=== PATIENT | female | born 1985 | race Caucasian/White ===

== ENCOUNTER 2016-06-07 17:02 | Emergency (ER) | payer OTHER ==
[~2016-06-07] VITALS: Ht 157.5 cm; Wt 87.5 kg
[2016-06-07 17:05] VITALS: TEMP 36.3; Ht 157.5 cm; Wt 87.5 kg
[2016-06-07] MEDS ORDERED: SODIUM CHLORIDE 0.9% 1000ML 1,000 ML IV STA (17:15)
[2016-06-07] MEDS ORDERED: KETOROLAC TROMETHAMINE 30 MG/ML VIAL IV STA (17:19)
[2016-06-07] MEDS ORDERED: DiphenhydrAMINE HCL 50 MG/ML VIAL IV STA (17:19)
[2016-06-07] MEDS ORDERED: PROCHLORPERAZINE 5 MG/ML 2 ML VIAL IV STA (17:19)
[2016-06-07 18:57] VITALS: BP 117/72; PULSE 88; O2SAT 99
--- NOTE | 2016-06-07 20:29 | EMERGENCY ROOM VISIT NOTE ---
History Report prepared by Santyiblucina: Shavon Rogers Under the Supervision of: Dr. Jesus Hines M.D. First contact with patient: 17:10 Chief Complaint: HEADACHE Stated Complaint: VOMTING, MCCANN, RT SIDE PAIN History of Present Illness The patient is a 30 year old female who presents to the Emergency Room with complaints of a persistent migraine headache that began last night. She describes her headache as throbbing. The pain started in her right shoulder and has since migrated to the front of her head. Light makes her pain worse. She also complains of nausea and vomiting. She has developed some abdominal discomfort since she started to vomit. The patient has had migraines in the past and her current symptoms feel similar to previous migraines. She is not on medications for her migraines because they are typically not too bad. She is unsure if there is a chance of , as she is trying to get . Her last menstrual period was May 15. Denies fevers, head trauma, unilateral numbness or weakness, or other complaints. Source of History: patient Onset: yesterday Position: head Quality: other (throbbing, migraine) Timing: other (persistent) Modifying Factors (Worsening): other (light) Associated Symptoms: + nausea, + vomiting, No fevers, No numbness, No weakness Note: Other symptoms: abdominal discomfort Review of Systems See HPI for pertinent positives & negatives. A total of 10 systems reviewed and were otherwise negative. Past Medical & Surgical Medical Problems: (1) Migraine headache Family History No pertinent family history stated. Social History Smoking Status: Current Some Day Smoker Current/Historical Medications No Active Prescriptions or Reported Meds Allergies Coded Allergies: No Known Allergies (Unverified , 06/07/16) Physical Exam Vital Signs Date Time Temp Pulse Resp B/P Pulse Ox O2 Delivery O2 Flow Rate FiO2 06/07/16 18:57 88 18 117/72 99 06/07/16 17:05 36.3 80 18 148/83 99 Room Air Physical Exam Constitutional: Vital signs reviewed. Eyes: Pupils are equal round reactive to light. Conjunctiva are noninjected. ENT: Pharynx is clear without erythema or exudate. Mucous membranes are moist. Neck supple without meningeal signs. Respiratory: Clear to auscultation bilaterally. Breath sounds are equal bilaterally. Cardiovascular: Regular rate and rhythm. No rubs or gallops. GI: Soft, nondistended and nontender. Bowel sounds are present. Musculoskeletal: No peripheral edema. Integumentary: No cyanosis. Neurological: The patient is awake and alert. Cranial nerves II-XII are intact. Motor is 5 out of 5 all extremities. Sensation is intact to light touch all extremities. Normal speech. No pronator drift. Psychiatric: Normal affect. Medical Decision & Procedures Laboratory Results Test 06/07/16 17:15 Laboratory results as reviewed by me. Medications Administered Medications (Trade) Dose Ordered Sig/Sara Route Start Time Stop Time Status Last Admin Dose Admin Sodium Chloride (Nss 1000ml) 1,000 ml @ 999 mls/hr Q1H1M STAT IV 06/07/16 17:15 06/07/16 18:15 DC 06/07/16 17:30 999 MLS/HR Prochlorperazine Edisylate (Compazine Inj) 10 mg NOW STAT IV 06/07/16 17:19 06/07/16 17:20 DC 06/07/16 17:30 10 MG Diphenhydramine HCl (Benadryl Inj) 50 mg NOW STAT IV 06/07/16 17:19 06/07/16 17:20 DC 06/07/16 17:30 50 MG Ketorolac Tromethamine (Toradol Inj) 10 mg NOW STAT IV 06/07/16 17:19 06/07/16 17:20 DC 06/07/16 17:30 10 MG ED Course 1711: The patient was evaluated in room C7. A complete history and physical exam was performed. 1715: Ordered NSS 1000 ml @ 999 mls/hr IV. 1719: Ordered Toradol Inj 10 mg IV, Benadryl Inj 50 mg IV, Compazine Inj 10 mg IV. 1753: I reassessed the patient. Her pain went down from a 9/10 to a 5/10 in severity. 1816: I reassessed the patient. She wanted to go home and declined any further medications. She will be discharged home. Medical Decision This is a 30-year-old female who presents with a migraine headache. I did perform a limited focused review of portions of the patient's old chart on the electronic medical record. The patient has had no prior to this hospital. I did evaluate the patient as noted above. She is presenting with a headache consistent with her prior migraine headaches. She is neurologically intact and afebrile. She denies any head injury. I have no reason to be concerned about intracranial hemorrhage or meningitis at this time. Urine test was negative. IV access was established. I did treat patient with IV normal saline, Compazine and Benadryl. I did reassess the patient she is feeling better. We did observe her longer. When I reassessed her again she stated she felt better and was ready to go home. She was discharged in good condition and advised to follow closely with her doctor. Impression Primary Impression: Headache Scribe Attestation The scribe's documentation has been prepared under my direct and personally reviewed by me in its entirety. I confirm that the note above accurately reflects all work, treatment, procedures, and medical decision making performed by me. Departure Information Dispostion Home / Self-Care Prescriptions No Active Prescriptions or Reported Meds Referrals No Doctor, Assigned (PCP) Patient Instructions ED Headache Migraine, My [facility] Additional Instructions You have been examined and treated today on an emergency basis only. This is not a substitute for, or an effort to provide, complete comprehensive medical care. It is impossible to recognize and treat all injuries or illnesses in a single emergency department visit. It is therefore important that you follow up closely with your physician. Call as soon as possible for an appointment. Return for worsening symptoms or if you develop fever or any other concerning symptoms. Problem Qualifiers Primary Impression: Headache Headache type: unspecified Headache chronicity pattern: acute headache Intractability: not intractable Qualified Codes: R51 - Headache
== END 2016-06-07 18:58 | disposition home or self-care (01) ==
LOC: C.EDB 17:03 → C.EDC 18:58
DX: R51 Headache (principal); M25.511 Pain in right shoulder; R11.2 Nausea with vomiting, unspecified; F17.200 Nicotine dependence, unspecified, uncomplicated